=== PATIENT | male | born 1985 | race Caucasian/White ===

== ENCOUNTER 2019-11-12 05:24 | Emergency (ER) | payer OTHER ==
[2019-11-12 05:46] VITALS: BP 113/70
[2019-11-12] MEDS ORDERED: AMOXICILLIN TR/POT CLAVULANATE 875-125 MG TAB PO ONE (06:34)
--- NOTE | 2019-11-12 06:40 | ER Document Report ---
HPI - HPI Patient complains to provider of: Sinus infection Time Seen by Provider: 11/12/19 06:25 Onset: Other - 3 weeks Onset/Duration: Worse Quality of pain: Pressure Pain Level: 4 Context: Patient presents complaining of seasonal allergies that have worsened recently. Patient states he has had sinus pressure, pain and purulent drainage for the past 3 weeks. Patient denies any fever. Patient denies any improvement of his symptoms with use of Zyrtec and Sudafed [id number]. Associated Symptoms: Rhinnorhea, Sinus pain/drainage. denies: Nonproductive cough, Fever Exacerbated by: Denies Relieved by: Denies Similar symptoms previously: Yes Recently seen / treated by doctor: No - ROS ROS below otherwise negative: Yes Systems Reviewed and Negative: Yes All other systems reviewed and negative - CONSTITUTIONAL Constitutional: DENIES: Fever, Chills - EENT EENT: REPORTS: Nasal Drainage-Purulent, Congestion. DENIES: Sore Throat, Ear Pain, Eye problems - NEURO Neurology: REPORTS: Headache. DENIES: Weakness, Vision blurred, Dizzinesss / Vertigo - RESPIRATORY Respiratory: DENIES: Trouble Breathing, Coughing - GASTROINTESTINAL Gastrointestinal: DENIES: Nausea - DERM Skin Color: Normal Skin Problems: None Past Medical History - General Information source: Patient - Social History Smoking Status: Former Smoker Chew tobacco use (# tins/day): No Frequency of alcohol use: Rare Drug Abuse: None Occupation: Student Family History: Reviewed & Not Pertinent Patient has suicidal ideation: No Patient has homicidal ideation: No Psychiatric Medical History: Reports: Hx Anxiety, Hx Attention Deficit Hypera ctivity Disorder Traumatic Medical History: Reports: Hx Traumatic Brain Injury Surgical Hx: Negative Vertical Provider Document - CONSTITUTIONAL Agree With Documented VS: Yes Exam Limitations: No Limitations General Appearance: WD/WN, No Apparent Distress - HEENT HEENT: Atraumatic, Normocephalic. negative: Pharyngeal Exudate, Pharyngeal Tenderness, Pharyngeal Erythema, Tympanic Membrane Red, Tympanic Membrane Bulging Notes: Clear, yellow nasal congestion, frontal sinus tenderness - NECK Neck: Normal Inspection, Supple. negative: Lymphadenopathy-Left, Lymphadenopathy-Right - RESPIRATORY Respiratory: Breath Sounds Normal, No Respiratory Distress, Chest Non-Tender. negative: Rales, Rhonchi, Wheezing - CARDIOVASCULAR Cardiovascular: Regular Rate, Regular Rhythm, No Murmur - GI/ABDOMEN Gastrointestinal: Abdomen Soft - BACK Back: Normal Inspection - MUSCULOSKELETAL/EXTREMETIES Musculoskeletal/Extremeties: MAEW, FROM - NEURO Level of Consciousness: Awake, Alert, Appropriate Motor/Sensory: No Motor Deficit - DERM Integumentary: Warm, Dry, No Rash Course - Re-evaluation Re-evalutation: 11/12/19 06:41 Patient presents with a history of allergies as well as superimposed acute sinusitis. Patient nontoxic in appearance. No concern for any upper respiratory symptoms, no concern for Covid. Patient advised of black box warning for Singulair, patient is agreeable with excepting risks of this prescription at this time stating that his has taken this medication and he feels comfortable with taking the medicine. Patient advised of potential risks with the medicine and symptoms for which she should seek treatment. - Vital Signs Vital signs: Temp Pulse Resp BP Pulse Ox 98.1 F 68 16 113/70 96 11/12/19 05:42 11/12/19 05:42 11/12/19 05:42 11/12/19 05:42 11/12/19 05:42 Discharge - Discharge Clinical Impression: Sinusitis Qualifiers: Sinusitis location: unspecified location Chronicity: acute Recurrence: non- recurrent Qualified Code(s): J01.90 - Acute sinusitis, unspecified Allergies Qualifiers: Encounter type: initial encounter Qualified Code(s): T78.40XA - Allergy, unspecified, initial encounter Condition: Stable Disposition: HOME, SELF-CARE Instructions: Augmentin ([facility]), Sinusitis ([facility]) Additional Instructions: Return immediately for any new or worsening symptoms Followup with your primary care provider, call tomorrow to make a followup appointment Continue to use saline nasal irrigation to help with your symptoms continue to take Zyrtec [id number] as directed Prescriptions: Montelukast Sodium [Singulair 10 mg Tablet] 10 mg PO QHS #30 tablet Amoxicillin/Potassium Clav [Augmentin 875-125 Tablet] 1 tab PO BID #20 tab Fluticasone Propionate [Flonase Nasal [facility] 50 Mcg/[facility] 16 gm] 2 spray NASL DAILY #1 bottle Referrals: XOCHITL FAIRBANKS PA-C [COMMUNITY BASED STAFF] - Follow up in 3-5 days
== END 2019-11-12 07:03 | disposition home or self-care (01) ==
LOC: ER 05:24
DX: J01.90 Acute sinusitis, unspecified (principal); T78.40XA Allergy, unspecified, initial encounter; J34.89 Other specified disorders of nose and nasal sinuses; R09.89 Other specified symptoms and signs involving the circulatory and respiratory systems; R09.81 Nasal congestion; R51 Headache; Z87.891 Personal history of nicotine dependence
CPT/HCPCS: 99283; J3490

== ENCOUNTER 2020-07-14 22:01 | Emergency (ER) | payer OTHER | END 2020-07-14 22:12 | disposition left against medical advice (07) | LOC: ER 22:01 | DX: Z53.21 Procedure and treatment not carried out due to patient leaving prior to being seen by health care provider (principal) ==